=== PATIENT | female | born 1985 | race American Indian/Alaskan Native ===

== ENCOUNTER 2018-10-14 19:18 | Emergency (ER) | payer SELFPAY ==
[2018-10-14 19:22] VITALS: BP 128/69; PULSE 83; RESP 16; TEMP 37.2; O2SAT 99
--- NOTE | 2018-10-14 20:04 | DI.RAD_ITS ---
SYMPTOMS/DIAGNOSIS: KNEE PAIN, REPORT OF DISLOCATED KNEECAP, PT STATES NUMBNESS FROM DISTAL FEMUR THROUGH ANTERIOR TIB/FIB RIGHT KNEE: Four views. No priors. No bone or joint abnormality is identified. The soft tissues are unremarkable. IMPRESSION: Negative examination.
[2018-10-14] MEDS: Ibuprofen 800 MG TAB PO (20:51)
--- NOTE | 2018-10-14 20:56 | DI.VRAD_ITS ---
EXAM: XR Left Knee, 4 or more Views EXAM DATE/TIME: 10/14/2018 8:06 PM CLINICAL HISTORY: 32 years old, female; Pain; Knee; Right; Patient HX: PT states she has numbness from distal femur through anterior tib / fib TECHNIQUE: XR Left knee 4 or more views. COMPARISON: No relevant prior studies available. FINDINGS: Bones/joints: Normal. Soft tissues: Normal. IMPRESSION: No acute findings. Dictated and Authenticated by: Isaias Urbina MD. Ordering:JONATHON HERNANDEZ MD
--- NOTE | 2018-10-14 21:06 | NUR.NOTE ---
Nursing Note: Provider performed a sensation test to patients right lower extremity as she has been reporting no sensation from below her knee to above her ankle. This flex o writer operator held up a blanket so patient could not see what provider was doing. Patient denied any sensation to provider but this flex o writer operator noted a reaction on patients face each time sharp was performed in the area in which she admitted (being her knee to above her ankle) to being numb. Patient also didn't complain of any pain when patient palpated firmly on patients posterior knee but anterior assessment of her knee with gentle touch patient screams.
--- NOTE | 2018-10-14 21:43 | W.ED.GENAD ---
Discharge Plan Disposition Patient Disposition: HOME Condition: Stable Discharge Details Chief Complaint: Orthopedic Clinical Impression: Knee pain, right Primary Care Provider: Fela,Local ED Provider: Vishal Guzman Home Meds and New Rx's Prescriptions: No Action No Known Home Meds RF: 0 Discharge Instructions Instructions: Knee Pain (ED) Additional Instructions: You may take kwit-wcb-oetnsop medications such as ibuprofen 600 mg every 6 hours as needed for pain otherwise rest ice elevate the knee over the next couple days and slowly advance activity as tolerated. If not improving over the next 2 weeks please call orthopedic office for reassessment. Please use your knee brace provided to at least for the next 2-4 weeks but you may remove it at times of rest Referrals: Grayson Dewey MD [ [facility]] - Pramod Farr MD [ [facility]] - Jesus Alberto Metzger MD [ [facility]] - Medical Decision Making Patient presenting to the emergency department for chief complaint of knee pain. Patient states that knee pain has been ongoing for a while but this morning woke up and had what appeared to be in abnormal presentation to the knee with possible superior dislocation of the patella. Patient states that her significant other was able to put everything back into place but she has had significant knee pain since. Patient denies any injury or trauma and states that she just woke up this way. Patient does state previous hip problems but denies any acute change in condition. Physical exam shows odd findings of severe expression of pain with even light palpation of the knee circumferentially. No ligament laxity is noted but again with any manipulation of the knee patient states severe discomfort that is not consistent with physical exam. Given no injury or trauma with discussion of patient's symptoms patient then added on that she was numb from just superior to the knee down through the lower leg but patient resumes at the ankle. Radiological imaging was ordered. Pending results patient offered ketorolac which she refused so given ibuprofen. Review of radiological imaging shows no acute findings. pinprick test along with cotton swab was utilized and patient did not elicit any pain response even with pinprick to the knee which previously was extremely tender to even light touch. Patient did elicit pain response again back to the ankle. entry level staff accountant was able to block patient's vision when testing was performed and entry level staff accountant stated that patient did show some response with pinprick but did not state any sensation but did have some visual cues that she could tell when this was occurring. Patient in the prone position did not elicit any pain response with palpation of the posterior,medial, and lateral aspects of the knee. These areas previously were extremely tender to touch. Distal to injury patient has full sensation, motor, and sensory intact also proximal to the knee there is no abnormality. Patient reported numbness does not follow any specific dermatome and there is no obvious cause for this to be on secondary gain Further discussed findings with patient of knee pain and that no emergent findings were noted. Patient then reports request for possible services given that she is living in a van and that she does not feel that she can fully rest her leg while living in a van. I feel that this may secondary reasoning to be in the emergency department. Patient states that she called the assistance hotline and was told that they could receive services after being discharged from the hospital within 48 hours. Patient states that she and her significant other are unable to go to the [facility] due to him being in insulin diabetic and them stating that they could not bring any needles or medication into the facility. Patient also states that they have contacted the housing authority which that states that they are not able to help the patient. I did contact care management and spoke with Karrie whom stated that she was unaware of any such rules or regulations in regards to the [facility] in patients not being able to utilize their prescribed medication and stated that there would be no other resource may be able to help them with be on them contacting [facility]. Patient was given information for follow-up with orthopedics as needed and for her to establish primary care with [facility] and [facility]. Patient encouraged to return for any new or significant worsening of symptoms. HPI General Mode of arrival: ambulatory. Date/Time Provider Initiated Documentation: 10/14/18 19:29. Limitations to Documentation: no limitations. Information obtained by: patient and RN notes reviewed. History of Present Illness 32 year old F presents to the emergency department with the chief complaint of right knee pain, described as severe, with intensity rated at 10. Quality is described as aching and sharp, and is localized to the right and lower extremity. Patient distal. Patient started experiencing this week(s) (6) and it has been constant. Movement worsens symptoms . Patient did receive the following treatments prior to arrival, none Related Data Home Medications Medication Instructions Recorded Confirmed Unknown [No Known Home Meds] 10/14/18 10/14/18 Allergies Allergy/AdvReac Type Severity Reaction Status Date / Time amoxicillin Allergy Severe Unverified 10/14/18 19:27 hydromorphone [From Dilaudid] Allergy Other (See Unverified 10/14/18 19:30 Comment) latex Allergy Unverified 10/14/18 19:27 morphine Allergy Other (See Unverified 10/14/18 19:30 Comment) Penicillins Allergy Unverified 10/14/18 19:27 General Stated Complaint: Orthopedic JANIE: 4 Review of Systems Constitutional Denies frequent falls Cardiovascular Denies syncope Musculoskeletal Reports as per HPI, Reports numbness and Denies tingling Neurologic Denies syncope, Denies frequent falls, Reports numbness and Denies tingling PFS Social History Smoking/Tobacco Use Status: Current every day Social History Smoking/Tobacco Use Status: Current every day Exam Const General: cooperative, healthy appearing and no acute distress Orientation: alert, awake and oriented x3 Resp Effort & Inspection: normal respiratory effort and able to speak in complete sentences Cardio Rate: regular rate Rhythm: regular rhythm Neuro General: alert, awake, oriented x3, tone normal, moves all extremities and no focal motor deficits Extrem Right lower extremity: hip/thigh Details: normal to inspection, knee Details: tenderness (Diffuse throughout the entire knee with even slight palpation of any anterior or posterior surface), swelling Location: of the pre-patellar area, abnormal ROM Details: pain with active ROM during Details: in extension and in flexion and pain with passive ROM during Details: in extension and in flexion; able to extend lower leg actively and knee ligament exam normal; Buck's Test not performed, Apley's Test not performed and no crepitus, lower leg Details: no edema and other (Reported numbness to pinprick and soft palpation of the skin that is circumferential from the superior aspect of the knee, pain response through palpation of the knee, then circumferential numbness from the upper calf to the beginning of the ankle but not including the ankle or the foot.); no tenderness, ankle Details: normal to inspection and foot Details: normal capillary refill, no edema, vascular exam Details: dorsalis pedis pulse present, posterior tibial pulse present and normal capillary refill, tendon exam Details: active flexion normal, active flexion abnormal, active extension normal and active extension abnormal and motor-sensory exam Details: two point discrimination normal, light-touch normal and pin-prick normal Left lower extremity: normal to inspection Course Vital Signs Temperature 37.2 C 10/14/18 19:22 Pulse 83 10/14/18 19:22 Respiratory Rate 16 10/14/18 19:22 Blood Pressure 128/69 10/14/18 19:22 Pulse Oximetry 99 10/14/18 19:22 Temperature 37.2 C 10/14/18 19:22 Temperature Source Skin 10/14/18 19:22 Pulse 83 10/14/18 19:22 Respiratory Rate 16 10/14/18 19:22 Respiratory Effort 10/14/18 19:27 Blood Pressure 128/69 10/14/18 19:22 Blood Pressure Position Sitting 10/14/18 19:22 Pulse Oximetry 99 10/14/18 19:22 Oxygen Delivery Method Room Air 10/14/18 19:22 Oxygen Flow Rate 0 10/14/18 19:22 Pain Level 10 10/14/18 21:09 Lab/Test Results Lab/Test Results: POC- Test(urine) Negative
[2018-10-14 21:59] VITALS: BP 128/69; PULSE 83; RESP 16; TEMP 37.2; O2SAT 99
== END 2018-10-14 21:59 | disposition home or self-care (01) ==
LOC: ER 22:29
PROVIDERS: Emergency Provider Nurse Practitioner Family
DX: M25.561 Pain in right knee (principal)
CPT/HCPCS: 81025; 96372; 99284; 73564; L1820